=== PATIENT | male | born 1970 | race Caucasian/White ===

== ENCOUNTER 2016-12-20 10:21 | Inpatient (IN) | payer BC ==
--- NOTE | ~2016-12-20 | OP ---
Record Of Operation [facility] [address] [place]. [address] NAME: YUNIER HERNANDEZ : 72 STATUS : ADM IN PAT#: [id number] AGE: 46 ADM/REG DATE : 12/20/16 MR#: [id number] REPORT SERV DATE: 12/20/16 DICTATED BY: KAVON MARTINEZ DATE: 12/20/16 REPORT STATUS : Draft TRANSCRIBED BY: MODL DATE: 12/20/16 DATE OF PROCEDURE: 12/20/2016 PREOPERATIVE DIAGNOSES: 1. Right foot osteomyelitis. 2. Right foot ulcer at the previous amputation site. 3. Right posterior heel ulceration. 4. Morbid obesity. 5. Diabetes mellitus with neuropathy. 6. Active smoker. POSTOPERATIVE DIAGNOSES: 1. Right foot osteomyelitis. 2. Right foot ulcer at the previous amputation site. 3. Right posterior heel ulceration. 4. Morbid obesity. 5. Diabetes mellitus with neuropathy. 6. Active smoker. PROCEDURES: 1. Right first ray amputation. 2. Right foot ulcer irrigation and debridement down to bone. INDICATION FOR OPERATION: Yunier Hernandez is a pleasant 46-year-old male who underwent a prior first MTP level amputation for diabetic foot ulceration with osteomyelitis. For a while, this looked really good. Unfortunately, the wound ultimately started draining. He failed conservative treatment for this condition. Risks and benefits of the above-mentioned surgery were discussed at length with the patient, all of his questions were answered, and he wished to proceed. DESCRIPTION OF PROCEDURE: Hema was brought back to operating room where general anesthesia was initiated. Right lower extremity was prepped and draped in the usual sterile fashion. Esmarch exsanguination was utilized and a well-padded calf tourniquet was inflated. Initially, we examined the foot, he had a small area of wound dehiscence over the distal incision. This was opened up. Irrigation and debridement down to including bone of the first metatarsal head was performed. We removed all necrotic and devitalized tissue. Deep tissue cultures were sent including subcutaneous tissues as well as deep tissue and even some bone fragments. Tissues were sent to microbiology for culture. Next, we performed a first ray amputation. The incision was made, carried back to the base of the first metatarsal, this incision was carried down to bone. Sharp dissection was used to expose the first metatarsal. We used a small sagittal saw to amputate the first ray distal to the anterior tibial tendon insertion. This first ray was removed in its entirety. Each sesamoid was also removed as we felt they may have been involved in this infectious process. At this time, we examined the foot. We "freshened" skin edges with a #15 blade. This left fresh bleeding edges. We continued to perform irrigation and debridement. We used a Pulsavac irrigation and sequential debridement until all necrotic and devitalized tissue had Record Of Operation [address] [address] NAME: YUNIER HERNANDEZ : 72 STATUS : ADM IN PAT#: [id number] AGE: 46 ADM/REG DATE : 12/20/16 MR#: [id number] REPORT SERV DATE: 12/20/16 DICTATED BY: KAVON MARTINEZ DATE: 12/20/16 REPORT STATUS : Draft TRANSCRIBED BY: DANIEL DATE: 12/20/16 been removed. Once the thorough debridement with normal saline was completed, the tourniquet was deflated and local vessels were cauterized as indicated. He had excellent vascularization of the remaining toes. He had healthy bleeding viable skin edges. Where sharp incision was made, we closed this wound in a single layer with multiple interrupted 2- 0 nylon sutures. Distally, we packed the wound open with half-inch iodoform Nu Gauze. Bulky sterile dressings were applied. On the posterior heel, he has a small partial- thickness ulceration approximately 8 mm in diameter over the posterior heel. This was dressed with a sterile well-padded dressing with Xeroform over the ulcer. Bulky sterile dressings were applied. The patient did well throughout the case. He awoke in the operating room and was transferred to recovery room in satisfactory condition. ALFA/DANIEL Kavon Martinez MD / [id number] CC: Kavon Martinez MD
--- NOTE | ~2016-12-20 | DS ---
Discharge Summary [facility] [address] [place]. [address] NAME: REGGIE HERNANDEZ : 72 STATUS : DIS IN PAT#: [id number] AGE: 46 ADM/REG DATE : 12/20/16 MR#: [id number] REPORT SERV DATE: 01/05/17 DICTATED BY: JUDITH MARTINEZ DATE: 01/04/17 REPORT STATUS : Draft TRANSCRIBED BY: DANIEL DATE: 01/04/17 ADMISSION DATE: 12/20/2016 DISCHARGE DATE: 12/26/2016 REASON FOR HOSPITALIZATION: Right foot osteomyelitis with nonhealing wound. HOSPITAL COURSE: Hema Hernandez is a pleasant 46-year-old male, who underwent prior first MTP level amputation for diabetic foot ulceration with osteomyelitis. He is an active smoker. Unfortunately, the wound started draining and he failed conservative treatment. Risks and benefits of the above-mentioned surgery were discussed at length with the patient. He wished to proceed. Surgery was performed on 12/20/2016. Underwent a first ray amputation with irrigation and debridement of the ulcer down to the bone. Wound was packed and a wound VAC was ultimately placed. Deep cultures were sent. Infectious Disease doctors closely followed this patient throughout his hospital course. He is also followed by the medical doctors. He was discharged to assisted facility with appropriate plans in place. All of his questions were answered and close followup appointments were made. ALFA/DANIEL Judith Martinez MD / [id number] CC: MD Xena Humphries Amy
--- NOTE | ~2016-12-20 | CN ---
Consultation Report [address] [place]. [address] NAME: REGGIE CAMACHO : 72 STATUS : ADM IN PAT#: [id number] AGE: 46 ADM/REG DATE : 12/20/16 MR#: [id number] REPORT SERV DATE: 12/20/16 DICTATED BY: PATRICIA GAY DATE: 12/20/16 REPORT STATUS : Draft TRANSCRIBED BY: MODL DATE: 12/20/16 CONSULTATION DATE OF CONSULTATION: 12/20/2016 REASON FOR CONSULTATION: Preop clearance and also for med management. HISTORY OF PRESENT ILLNESS: Reason for the patient being admitted is for right foot osteomyelitis, for probable incision and drainage/debridement/further extensive surgery and possible even forefoot amputation, but this is per Orthopedic Surgery. The patient was examined at bedside and according to the chart and after talking to the patient, the patient has several comorbidities all related to his BMI and being overweight essentially. At this time, the patient denies any headaches, blurry vision, shortness of breath, wheeze, cough, chest pain, fever, abdominal pain, nausea, vomiting, dysuria, hematuria, blood in stool, joint pains, etc. He states that his right foot has been hurting and never has healed completely since his right big toe amputation a few months ago. PAST MEDICAL HISTORY: Significant for: 1. High blood pressure. 2. Diabetes mellitus, insulin requiring. 3. Hyperlipidemia or dyslipidemia. 4. Obstructive sleep apnea, the patient does not have CPAP right now, but states is in the process of getting one. Other comorbidities also include hypothyroidism and tobacco abuse. The patient also has a history of asthma/COPD from his tobacco use according to him. REVIEW OF SYSTEMS: As above. FAMILY HISTORY: Positive for diabetes mellitus in father. SOCIAL HISTORY: The patient smokes a pack a day even now. The patient states that as of yesterday, he has given up smoking and given up his one pack of cigarettes that he used to smoke every day. The patient denies any significant alcohol use. Denies any illicits. The patient is and has one 18-year-old daughter and works. ALLERGIES: THE PATIENT IS ALLERGIC TO ASPARTAME. Consultation Report [address] [address] NAME: REGGIE CAMACHO : 72 STATUS : ADM IN PAT#: [id number] AGE: 46 ADM/REG DATE : 12/20/16 MR#: [id number] REPORT SERV DATE: 12/20/16 DICTATED BY: PATRICIA GAY DATE: 12/20/16 REPORT STATUS : Draft TRANSCRIBED BY: DANIEL DATE: 12/20/16 CURRENT MEDICATIONS: Include aspirin 81 mg once a day, Bydureon subcutaneous pen injector once a day, furosemide 20 mg tablet once a day, Januvia once a day, lisinopril 20 mg once a day, metformin ER 500 mg once a day, Singulair 10 mg once a day, potassium 20 mEq once a day, ranitidine 150 mg once a day, Synthroid 175 mcg once a day, and Toujeo SoloStar 300 units/mL subcutaneous insulin pen that he uses once a day also. PHYSICAL EXAMINATION: GENERAL: The patient is alert, awake, oriented and does not seem to be in any distress at this time. The patient is an obese gentleman with a BMI of definitely over 40. His skin and mucous membranes appear moist. VITAL SIGNS: Appear stable right now. NECK: There is no JVD, thyromegaly, or lymphadenopathy. There is no facial asymmetry or facial droop. CARDIOVASCULAR SYSTEM: S1 and S2 appreciated. Sinus rhythm. No murmurs, rubs, or gallops noted at this time. RESPIRATORY SYSTEM: Thick chest wall noted. Clear lungs noted. Diminished breath sounds noted at the bases. ABDOMEN: Obese. There is no hepatosplenomegaly, no organomegaly, no tenderness, no guarding. Bowel sounds are appreciated. EXTREMITIES: There is no pedal edema. Pedal pulses are well felt, even though slightly diminished in the right lower extremity. The patient recently had an arterial Doppler that did not show any major blockages in any of the major blood vessels to the lower extremities. NEUROLOGICAL: Normal. MUSCULOSKELETAL: No acute swelling or redness in any of the major joints. PSYCHIATRIC: Normal affect. LABORATORY DATA: I do not have any labs at this time. EKG, no EKG at this time. No other tests available at this time. ASSESSMENT: We are asked for preop clearance on a patient who is 46 years old with multiple comorbidities including diabetes mellitus and tobacco abuse, being brought in for right foot surgery, I and D, possibly amputation if needed. The patient understands this. We will get an EKG stat, a CBC and BMP stat. We will put the patient on sliding scale insulin level 3. Accu-Cheks a.c. and h.s., but hold all his home medications that he takes for diabetes at this time. We will go ahead and put him on nicotine patch 21 mg once a day. Except the following medications, I would like to hold all his other home medications. We will continue Lasix 20 mg once a day, levothyroxine 175 mcg once a day, K-Dur 20 mEq once a day. We will put him on Protonix 40 mg once a day and breathing treatments with DuoNeb q.4 hours p.r.n. I am requesting the orthopedic surgeon to please send off wound culture and sensitivity during surgery, so we can decide on antibiotics based on what the wound culture and sensitivity show at this time. At this time, when I examined him, his right foot is wrapped in bandage and he said that the dressing was just changed two hours ago. The dressing appears clean. There is no soakage or seepage in the dressing that is seen. The Consultation Report [address] [address] NAME: REGGIE CAMACHO : 72 STATUS : ADM IN PAT#: [id number] AGE: 46 ADM/REG DATE : 12/20/16 MR#: [id number] REPORT SERV DATE: 12/20/16 DICTATED BY: PATRICIA GAY DATE: 12/20/16 REPORT STATUS : Draft TRANSCRIBED BY: MODL DATE: 12/20/16 patient has had his right big toe amputated. We will follow the patient along with you, thanks for the consultation, and I will go ahead and check on his labs and EKG before surgery is planned as of today. RRA/DANIEL Patricia Gay M.D. / [id number] CC: MD Xena Humphries Amy
--- NOTE | ~2016-12-20 | HP ---
History And Physical [facility] [id number] [place]. [address] NAME: YUNIER HERNANDEZ : 72 STATUS : DIS IN PAT#: [id number] AGE: 46 ADM/REG DATE : 12/20/16 MR#: [id number] REPORT SERV DATE: 01/21/17 DICTATED BY: KAVON MARTINEZ DATE: 01/21/17 REPORT STATUS : Draft TRANSCRIBED BY: MODL DATE: 01/21/17 DATE OF ADMISSION: 12/20/2016 12/20/2016 was the date of the surgery. CHIEF COMPLAINT: Right foot draining wound. HISTORY OF PRESENT ILLNESS: Yunier Hernandez is a pleasant 46-year-old male who underwent a prior first MTP joint level amputation for diabetic foot ulceration with osteomyelitis. Unfortunately, this failed to heal completely. We discussed revision surgery including a more proximal level amputation without primary wound closure. Risks and benefits of this surgery were discussed, and he wished to proceed. PAST MEDICAL HISTORY: Right foot osteomyelitis, right foot ulceration, right posterior heel ulceration, morbid obesity, diabetes mellitus with neuropathy, an active smoker, obstructive sleep apnea, asthma, COPD, and hypothyroidism. REVIEW OF SYSTEMS: The patient was in his usual state of health at the time of the procedure. He denied fevers, chills, nausea, vomiting, abdominal pain, shortness of breath, or chest pain. Did note a draining wound on the right foot. PRIOR SURGERIES: See above. FAMILY HISTORY: Positive for diabetes mellitus in his father. SOCIAL HISTORY: The patient smokes pack a day. Denies any significant alcohol use. Denies illicit drug use. 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 He is and has one 18-year-old daughter. ALLERGIES: TO ASPARTAME. MEDICATIONS: Aspirin daily, Bydureon subcutaneous pen injector once a day, Lasix, Januvia, lisinopril, metformin, Singulair, potassium, ranitidine, Synthroid, Toujeo SoloStar. PHYSICAL EXAMINATION: GENERAL: Examination reveals that he is awake and alert x3. He is alert and oriented. He is an obese gentleman. Morbidly obese. HEENT: Head is atraumatic. Pupils are equal to light and reactive. EXTREMITIES: Full active and passive range of motion of his upper extremities. Full active and passive range of motion of his lower extremities. No significant left foot wounds. Small right posterior heel ulceration. Draining wound, right foot. ASSESSMENT: Right foot osteomyelitis confirmed by x-rays and MRI scan. PLAN: Lengthy discussion with the patient regarding his diagnosis and treatment options. History And Physical [address] [place]. [address] NAME: YUNIER HERNANDEZ : 72 STATUS : DIS IN PAT#: [id number] AGE: 46 ADM/REG DATE : 12/20/16 MR#: [id number] REPORT SERV DATE: 01/21/17 DICTATED BY: KAVON MARTINEZ DATE: 01/21/17 REPORT STATUS : Draft TRANSCRIBED BY: MODL DATE: 01/21/[address] Felipa Ochoa's consultation dated 12/20/2016 for additional medical details and clearance records. We recommended revision surgery. All these options were thoroughly discussed with the patient. We also discussed the importance of nonweightbearing as well as quitting smoking and taking care of his foot during this surgery. He agreed to the above recommendations and wished to proceed with surgical intervention. ALFA/DANIEL Kavon Martinez MD / [id number] CC: MD KYLE Humphries AMY
[~2016-12-20 10:21] MED LIST: ACET500CAP PO; BEN25 PO; BYDUREON2 MG SQ; COSAMIN DS1 TAB PO; FORTAMET1000 MG PO; HALF81 PO; KDUR20 PO; L20 PO; LEVOTHYROXIN175 MCG PO; MAXIMUM D3 PO; MONISTAT 34 % TOP; MULTIVIT/MIN PO; NIACIN 500 PO; PRIN20 PO; SINGULAIR1 PO; TOUJEO SC; VENTOLIN HFA INH; ZANTAC 150 PO
[2016-12-20 11:50] LABS: BASOPHILS 0.5 %; BASOPHILS ABSOLUTE 0.03 10/3/uL (0.0-0.16); EOSINOPHILS ABSOLUTE 0.17 10/3/uL (0.0-0.53); IMMATURE GRANULOCYTES 0.2 %; IMMATURE GRANULOCYTES ABSOLUTE 0.01 10/3/uL (0.0-0.11); LYMPHOCYTES 19.4 %; LYMPHOCYTES ABSOLUTE 1.12 10/3/uL (0.67-4.30); MEAN CORPUS HGB CONC 32.5 g/dL (32.0-36.0); MEAN CORPUSCULAR HEMOGLOB 28.1 pg (26.0-34.0); MEAN CORPUSCULAR VOLUME 86.6 fL (80-100); MONOCYTES 9.9 %; MONOCYTES ABSOLUTE 0.57 10/3/uL (0.21-1.20); NEUTROPHILS ABSOLUTE 3.86 10/3/uL (2.02-8.40); RBC DISTRIBUTION WIDTH 13.7 % (12.0-16.0); WHITE BLOOD CELLS 5.8 10/3/uL (4.5-10.5)
[2016-12-20 11:52] LABS: HEMATOCRIT 27.1 % (40.0-51.0); HEMOGLOBIN 8.8 g/dL (13.6-17.8); MANUAL DIFF NO %; PLATELET COUNT 99 10/3/uL (150-400); RED CELL COUNT 3.13 10/6/uL (4.7-6.1)
[2016-12-20 11:57] LABS: INTERNATIONAL NORMAL RATI 1.2 UNITS (-); PARTIAL THROMBO TIME 28.1 SEC (22.5-37.2); PROTIME (NOT ORD) 14.6 SEC (12.0-14.5)
[2016-12-20 12:28] LABS: A/G RATIO 0.9 (0.7-1.9); ALBUMIN 3.2 G/DL (3.5-5.0); ALKALINE PHOSPHATASE 141 U/L (45-117); C-REACTIVE PROTEIN 60.9 MG/L (<8.0); CHLORIDE, SERUM 103 MMOL/L (96-112); CO2 (CARBON DIOXIDE) 27 MMOL/L (24-34); CREATININE 0.86 MG/DL (0.70-1.30); GFR AFRICAN AMERICAN 121 ML/MIN (>=60); GFR NON AFRICAN AMERICAN 105 ML/MIN (>=60); GLOBULIN 3.7 G/DL (2.5-4.1); GLUCOSE, SERUM 256 MG/DL (60-99); POTASSIUM, SERUM 4.3 MMOL/L (3.5-5.3); SGOT(AST) 25 U/L (5-40); SGPT(ALT) 48 U/L (5-65); SODIUM, SERUM 139 MMOL/L (135-148); TOTAL BILIRUBIN 0.4 MG/DL (0-1.2); TOTAL PROTEIN 6.9 G/DL (6.0-8.5)
[2016-12-20 12:29] LABS: BUN (BLOOD UREA NITROGEN) 20 MG/DL (6-23); CALCIUM, SERUM 9.7 MG/DL (8.5-10.4)
[2016-12-20 12:45] LABS: SED RATE 8 MM/HR (0-15)
[2016-12-21] MEDS ORDERED: JANUVIA100 MG PO (11:50)
[2016-12-22 06:36] LABS: BASOPHILS 0.4 %; BASOPHILS ABSOLUTE 0.03 10/3/uL (0.0-0.16); EOSINOPHILS 3.6 %; EOSINOPHILS ABSOLUTE 0.27 10/3/uL (0.0-0.53); IMMATURE GRANULOCYTES 0.5 %; IMMATURE GRANULOCYTES ABSOLUTE 0.04 10/3/uL (0.0-0.11); LYMPHOCYTES ABSOLUTE 2.39 10/3/uL (0.67-4.30); MEAN CORPUS HGB CONC 32.8 g/dL (32.0-36.0); MEAN CORPUSCULAR HEMOGLOB 28.5 pg (26.0-34.0); MEAN PLATELET VOLUME 12.3 fL (9.2-13.0); MONOCYTES 7.6 %; MONOCYTES ABSOLUTE 0.57 10/3/uL (0.21-1.20); NEUTROPHILS 55.9 %; NEUTROPHILS ABSOLUTE 4.18 10/3/uL (2.02-8.40); RBC DISTRIBUTION WIDTH 13.7 % (12.0-16.0); WHITE BLOOD CELLS 7.5 10/3/uL (4.5-10.5)
[2016-12-22 06:42] LABS: BUN (BLOOD UREA NITROGEN) 15 MG/DL (6-23); CALCIUM, SERUM 8.1 MG/DL (8.5-10.4); CHLORIDE, SERUM 103 MMOL/L (96-112); CO2 (CARBON DIOXIDE) 24 MMOL/L (24-34); CREATININE 0.65 MG/DL (0.70-1.30); GFR AFRICAN AMERICAN 136 ML/MIN (>=60); GFR NON AFRICAN AMERICAN 117 ML/MIN (>=60); GLUCOSE, SERUM 227 MG/DL (60-99); HEMATOCRIT 40.9 % (40.0-51.0); HEMOGLOBIN 13.4 g/dL (13.6-17.8); MANUAL DIFF NO %; PLATELET COUNT 183 10/3/uL (150-400); POTASSIUM, SERUM 4.2 MMOL/L (3.5-5.3); SODIUM, SERUM 137 MMOL/L (135-148)
[2016-12-22 11:03] LABS: PROCALCITONIN 0.08 ng/mL (<0.5)
[2016-12-23 06:38] LABS: BASOPHILS 0.6 %; BASOPHILS ABSOLUTE 0.04 10/3/uL (0.0-0.16); EOSINOPHILS 4.1 %; EOSINOPHILS ABSOLUTE 0.29 10/3/uL (0.0-0.53); HEMATOCRIT 40.1 % (40.0-51.0); HEMOGLOBIN 12.8 g/dL (13.6-17.8); IMMATURE GRANULOCYTES 0.1 %; IMMATURE GRANULOCYTES ABSOLUTE 0.01 10/3/uL (0.0-0.11); LYMPHOCYTES 34.7 %; LYMPHOCYTES ABSOLUTE 2.43 10/3/uL (0.67-4.30); MEAN CORPUS HGB CONC 31.9 g/dL (32.0-36.0); MEAN CORPUSCULAR HEMOGLOB 28.1 pg (26.0-34.0); MEAN CORPUSCULAR VOLUME 87.9 fL (80-100); MEAN PLATELET VOLUME 11.9 fL (9.2-13.0); MONOCYTES 8.4 %; MONOCYTES ABSOLUTE 0.59 10/3/uL (0.21-1.20); NEUTROPHILS 52.1 %; NEUTROPHILS ABSOLUTE 3.65 10/3/uL (2.02-8.40); PLATELET COUNT 174 10/3/uL (150-400); RBC DISTRIBUTION WIDTH 13.6 % (12.0-16.0); RED CELL COUNT 4.56 10/6/uL (4.7-6.1)
[2016-12-23 06:40] LABS: MANUAL DIFF NO %
[2016-12-23 06:47] LABS: BUN (BLOOD UREA NITROGEN) 12 MG/DL (6-23); CALCIUM, SERUM 8.1 MG/DL (8.5-10.4); CHLORIDE, SERUM 101 MMOL/L (96-112); CO2 (CARBON DIOXIDE) 29 MMOL/L (24-34); CREATININE 0.64 MG/DL (0.70-1.30); GFR AFRICAN AMERICAN 137 ML/MIN (>=60); GFR NON AFRICAN AMERICAN 118 ML/MIN (>=60); GLUCOSE, SERUM 179 MG/DL (60-99); POTASSIUM, SERUM 4.5 MMOL/L (3.5-5.3); SODIUM, SERUM 139 MMOL/L (135-148)
[2016-12-26 04:13] LABS: BASOPHILS 0.5 %; BASOPHILS ABSOLUTE 0.03 10/3/uL (0.0-0.16); EOSINOPHILS 3.9 %; EOSINOPHILS ABSOLUTE 0.25 10/3/uL (0.0-0.53); HEMATOCRIT 41.2 % (40.0-51.0); HEMOGLOBIN 13.3 g/dL (13.6-17.8); IMMATURE GRANULOCYTES 0.3 %; IMMATURE GRANULOCYTES ABSOLUTE 0.02 10/3/uL (0.0-0.11); LYMPHOCYTES 34.1 %; LYMPHOCYTES ABSOLUTE 2.18 10/3/uL (0.67-4.30); MANUAL DIFF NO %; MEAN CORPUS HGB CONC 32.3 g/dL (32.0-36.0); MEAN CORPUSCULAR HEMOGLOB 27.9 pg (26.0-34.0); MEAN CORPUSCULAR VOLUME 86.6 fL (80-100); MEAN PLATELET VOLUME 11.5 fL (9.2-13.0); MONOCYTES 8.9 %; MONOCYTES ABSOLUTE 0.57 10/3/uL (0.21-1.20); NEUTROPHILS 52.3 %; NEUTROPHILS ABSOLUTE 3.34 10/3/uL (2.02-8.40); PLATELET COUNT 178 10/3/uL (150-400); RBC DISTRIBUTION WIDTH 13.5 % (12.0-16.0); RED CELL COUNT 4.76 10/6/uL (4.7-6.1); WHITE BLOOD CELLS 6.4 10/3/uL (4.5-10.5)
[2016-12-26 04:35] LABS: A/G RATIO 0.8 (0.7-1.9); BUN (BLOOD UREA NITROGEN) 12 MG/DL (6-23); CALCIUM, SERUM 8.2 MG/DL (8.5-10.4); CHLORIDE, SERUM 104 MMOL/L (96-112); CO2 (CARBON DIOXIDE) 28 MMOL/L (24-34); CREATININE 0.68 MG/DL (0.70-1.30); GFR AFRICAN AMERICAN 134 ML/MIN (>=60); GFR NON AFRICAN AMERICAN 115 ML/MIN (>=60); GLOBULIN 3.9 G/DL (2.5-4.1); GLUCOSE, SERUM 145 MG/DL (60-99); POTASSIUM, SERUM 4.3 MMOL/L (3.5-5.3); SGOT(AST) 44 U/L (5-40); SGPT(ALT) 58 U/L (5-65); SODIUM, SERUM 140 MMOL/L (135-148); TOTAL BILIRUBIN 0.3 MG/DL (0-1.2); TOTAL PROTEIN 6.9 G/DL (6.0-8.5)
[2016-12-26 04:49] LABS: ALKALINE PHOSPHATASE 99 U/L (45-117); PHOSPHORUS, SERUM 3.3 MG/DL (2.5-4.5)
== END 2016-12-26 17:43 | DRG 617 ==
LOC: CDU1 10:21 → SDC/OF 15:31 → PACU 18:28 → 2SO 20:56
PROVIDERS: Hospitalist; Internal Medicine Infectious Disease; Orthopaedic Surgery Foot and Ankle Surgery
PROC: 0Y6M0Z9 Detachment at Right Foot, Partial 1st Ray, Open Approach (ICD-10-PCS; principal; 2016-12-20 16:45)
PROC: 0QBN0ZZ Excision of Right Metatarsal, Open Approach (ICD-10-PCS; 2016-12-20 16:45)
DX: E11.69 Type 2 diabetes mellitus with other specified complication (principal); M86.8X7 Other osteomyelitis, ankle and foot; D62 Acute posthemorrhagic anemia; E11.65 Type 2 diabetes mellitus with hyperglycemia; I80.8 Phlebitis and thrombophlebitis of other sites; I10 Essential (primary) hypertension; Z68.41 Body mass index [BMI] 40.0-44.9, adult; L03.115 Cellulitis of right lower limb; T80.1XXA Vascular complications following infusion, transfusion and therapeutic injection, initial encounter; E11.42 Type 2 diabetes mellitus with diabetic polyneuropathy; E11.621 Type 2 diabetes mellitus with foot ulcer; E78.5 Hyperlipidemia, unspecified; G47.33 Obstructive sleep apnea (adult) (pediatric); E03.9 Hypothyroidism, unspecified; F17.210 Nicotine dependence, cigarettes, uncomplicated; J44.9 Chronic obstructive pulmonary disease, unspecified; J45.909 Unspecified asthma, uncomplicated; E66.01 Morbid (severe) obesity due to excess calories; K21.9 Gastro-esophageal reflux disease without esophagitis; R09.02 Hypoxemia; R00.0 Tachycardia, unspecified; Z83.3 Family history of diabetes mellitus; Z79.4 Long term (current) use of insulin; Y82.8 Other medical devices associated with adverse incidents; Y92.230 Patient room in hospital as the place of occurrence of the external cause
CPT/HCPCS: 36569-52; 71010; 73718-RT; 80048; 80053; 80202; 82962; 83735; 84100; 84145; 85025; 85610; 85652; 85730; 86140; 87015; 87070; 87075; 87102; 87116; 87205; 88305; 88311; 93005; 97116-GP; 97162-GP; 97166-GO; 97530-GP; 97535-GO; A9270-GY; C1894; J2250; J2270; J2370; J2405; J3010; J3370

== ENCOUNTER 2017-02-15 16:21 | Inpatient (IN) | payer BC, OTHER ==
--- NOTE | ~2017-02-15 | DS ---
Discharge Summary [facility] [address] [place]. [address] NAME: REGGIE HERNANDEZ : 72 STATUS : DIS IN PAT#: [id number] AGE: 46 ADM/REG DATE : 02/15/17 MR#: [id number] REPORT SERV DATE: 02/22/17 DICTATED BY: SAMMY [place] DATE: 02/20/17 REPORT STATUS : Draft TRANSCRIBED BY: MODL DATE: 02/20/17 ADMISSION DATE: 02/15/2017 DISCHARGE DATE: 02/20/2017 REASON FOR ADMISSION: Left great toe wound and fever. HPI: Please refer Dr. Hung Farah's history and physical dated 02/15/2017 for complete details regarding the patient's admission. In brief, the patient was admitted to the Hospitalist Service for management and evaluation of his left great toe and diabetic foot ulcer. HOSPITAL COURSE: The patient had an uncomplicated hospital course. The patient had several imaging studies done including an MRI of his lower extremity on 02/19/2017 which showed evidence for osteomyelitis involving the mid to distal portion of the first metatarsal bone, new from 10/11/2016. The patient has undergone amputation of the phalangeal bone to the first digit in the interval. An x-ray that was done prior to the MRI showed an ulcer and soft tissue swelling of the left great toe, but no evidence of osteo. Dr. Gil with [facility] performed an irrigation debridement and excisional debridement down to and including the tendon of the left great toe on 02/16/2017. Dr. Peter Melissa with Infectious Disease was consulted and placed the patient on appropriate antibiotics. Cultures were obtained. The patient had a wound VAC placed. He will be getting a PICC line placed for IV ceftaroline and then to start oral Zyvox on 03/11/2017. The patient was noted to have an allergic reaction to possibly aspartame on the day of discharge. He will get a dose of Solu-Medrol and Benadryl prior to being discharged. Once all the arrangements with IV antibiotics, wound vacuum and PICC line have been arranged, patient discharged home in stable condition. DISCHARGE DIAGNOSES: 1. Left plantar osteomyelitis. 2. Type 2 diabetes. 3. Morbid obesity. 4. Hypothyroidism. 5. Hypertension. 6. Possible aspartame allergic reaction. PROCEDURES: Include MRI, x-ray consultation with Dr. Gil, consultation with Dr. Peter Melissa, chest x-ray, PICC line placement, incision and debridement of left ulcer. DISCHARGE MEDICATIONS: Include Januvia 100 mg daily, vitamin D 50,000 units daily, Zantac 150 mg twice a day, Lasix 20 mg daily, Toujeo 30 units at bedtime, Synthroid 150 mcg daily, lisinopril 20 mg twice a day, Singulair 10 mg at bedtime, multivitamin daily, Niacor 1000 mg daily, Klor-Con 20 mEq daily, ibuprofen p.r.n., Glucophage 1000 mg twice a day, Bydureon 2 mg every Saturday, glucosamine twice a day, Robaxin p.r.n., aspirin 81 mg daily, ceftaroline 600 mg IV every eight hours through 03/10/2017, then Zyvox 600 mg twice a day starting on 03/11/2017. Discharge Summary [address] [address] NAME: REGGIE HERNANDEZ : 72 STATUS : DIS IN PAT#: [id number] AGE: 46 ADM/REG DATE : 02/15/17 MR#: [id number] REPORT SERV DATE: 02/22/17 DICTATED BY: SAMMY [place] DATE: 02/20/17 REPORT STATUS : Draft TRANSCRIBED BY: DANIEL DATE: 02/20/17 Spending over 30 minutes in discharge planning and coordination of care on Mr. Hernandez. ADDENDUM: The patient was initially scheduled to be discharged to home with home health with wound VAC and IV antibiotics on 02/20/2017, however, we were unable to find a home health agency and a PICC line was not able to be placed in time. We have placed a PICC line and the patient will be discharged today in stable condition to [facility] for rehab and IV antibiotics along with wound care. Please refer my previous discharge dictation for complete details regarding the patient's hospitalization, discharge diagnoses, and medications. There were no changes. This is Dr. Sammy Austin spending over 30 minutes in discharge planning and coordination of care on Mr. Hernandez. LESLIE/DANIEL Sammy Austin MD / [id number] / [id number] CC: MD Peter Hays M.D. Matthew M. Buchanan, MD
--- NOTE | ~2017-02-15 | CN ---
Consultation Report [facility] [address] [place]. [address] NAME: YUNIER HERNANDEZ : 72 STATUS : ADM IN PAT#: [id number] AGE: 46 ADM/REG DATE : 02/15/17 MR#: [id number] REPORT SERV DATE: 02/18/17 DICTATED BY: KAVON MARTINEZ DATE: 02/16/17 REPORT STATUS : Draft TRANSCRIBED BY: MODL DATE: 02/16/17 CONSULTATION REPORT DATE OF CONSULTATION: 02/16/2017 REASON FOR CONSULTATION: Left plantar forefoot ulceration. HISTORY OF PRESENT ILLNESS: Yunier Hernandez is a pleasant 46-year-old male, who is well known to my service. He recently underwent two surgical interventions for treatment of a right hallux osteomyelitis with ulceration, this culminated in a right first ray amputation. He was nearly completely healed from this most recent procedure after a lengthy use of a wound VAC. He had healed reasonably well, and we were actually quite pleased with his progress. Fortunately, he developed onset of a left hallux ulceration. He was recently seen by his primary care office with malodorous smell and a wound drainage from his left great toe that started "a few days" ago. He noticed significant increase in erythema and swelling. He noticed a fever of 101.3 at home. He had overall chills and was not feeling well. He was instructed to head to the emergency department where further evaluation was performed. The patient was subsequently admitted and I was asked to evaluate the patient. PAST MEDICAL HISTORY: Significant for morbid obesity; diabetes mellitus type 2, insulin dependent and poorly controlled. Smoking, he continues to smoke despite the strong advice to quit which I provided a significant amount of strong advice. Hypothyroidism, hypertension, obstructive sleep apnea, noncompliant with CPAP, asthma/COPD. PAST SURGICAL HISTORY: See above. Tonsillectomy. ALLERGIES: ASPARTAME AND COCONUT. HOME MEDICATIONS: Multivitamin, ibuprofen, Pepcid, Lasix, Januvia, lisinopril, metformin, vitamin D, niacin, Singulair, potassium, Xanax, Synthroid, Toujeo, Bydureon, glucosamine chondroitin, aspirin daily. SOCIAL HISTORY: , lives with his . He smokes about a pack of cigarettes a day. Denies alcohol abuse. Denies illicit or recreational drug use. 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 REVIEW OF SYSTEMS: The patient is in his usual state of health at the time of the evaluation. He is currently denying fevers, chills, nausea, vomiting, abdominal pain, shortness of breath, or chest pain. PHYSICAL EXAMINATION: VITAL SIGNS: Reveals a morbidly obese male, in no acute distress. He is sitting in his bed, working on a computer. He is alert and oriented x3. VITAL SIGNS: His temperature is 98.4, heart rate 79, respirations 16. He has 96% O2 Consultation Report [facility] [address] [place]. [address] NAME: YUNIER HERNANDEZ : 72 STATUS : ADM IN [facility]#: [id number] AGE: 46 ADM/REG DATE : 02/15/17 MR#: [id number] REPORT SERV DATE: 02/18/17 DICTATED BY: KAVON MARTINEZ DATE: 02/16/17 REPORT STATUS : Draft TRANSCRIBED BY: MODL DATE: 02/16/17 saturation on room air. HEENT: His head is atraumatic. Eyes, pupils equal to light and reactive. NECK: No cervical spine tenderness with gentle range of motion. CHEST: Nonlabored breathing. HEART: Regular rate and rhythm. ABDOMEN: Morbidly obese. EXTREMITIES: Bilateral upper extremities, no tenderness with gentle range of motion. Right lower extremity, he has a healing wound, status post right first ray amputation. The great toe has been amputated. The wound has had extensive use of a wound VAC and is nearly completely closed. There is minimal edema. No wound drainage. No purulence or loculations. Examination of the left foot reveals a full-thickness ulceration on the plantar surface of the left great toe. Dense callus is present around this wound. It is malodorous. It probes to deep tissue. It is 1.5 cm in diameter and full thickness. No additional skin lesions are noted on his left foot. Dorsalis pedis and posterior tibial pulses are palpable. Cap refill is less than 2 seconds. There is erythema and edema surrounding the left great toe. No significant lymphatic streaking, although he does have evidence of chronic venous insufficiency bilateral with hyperpigmentation of the Gaiter region. X-RAYS: X-rays of the left foot taken on 02/15/2013, are negative for osteomyelitis. He does have small sesamoid bone underneath his left great toe IP joint. MRI is pending. White count 9.3. Hemoglobin 13.9 CRP 44.8, glycosylated hemoglobin is 8.7. IMPRESSION: 1. Left plantar forefoot ulceration that probes to the FHL tendon. 2. Poorly controlled diabetes mellitus with neuropathy. 3. Active smoker. 4. Morbidly obese. PLAN: Lengthy discussion with Yunier regarding his diagnosis and treatment options. This is deep ulceration that probes to his FHL tendon. I recommended irrigation and debridement at the bedside to clean up this wound. He agreed. Please reference my surgical procedure note dictated today regarding this procedure. Upon conclusion of the debridement, a bulky sterile dressing was applied. We have asked Yunier to be heel weightbearing in a postop shoe with the use of a walker. I have asked Physical Therapy to help with this. I have also asked for the wound care nurses to come by and help with the care of this ulceration. MRI is pending and we will follow these results. I appreciate the opportunity to participate in the care of this patient. Please do not hesitate to call me on my cell phone at [phone] with additional questions or concerns. Consultation Report [address] [place]. [address] NAME: YUNIER HERNANDEZ : 72 STATUS : ADM IN [facility]#: [id number] AGE: 46 ADM/REG DATE : 02/15/17 MR#: [id number] REPORT SERV DATE: 02/18/17 DICTATED BY: KAVON MARTINEZ DATE: 02/16/17 REPORT STATUS : Draft TRANSCRIBED BY: DANIEL DATE: 02/16/17 ADDENDUM A minimum of 55 minutes were spent on this consultation including review of the medical records as well as [id number] consultation with the patient. ALFA/DANIEL Kavon Martinez MD / [id number] / [id number] CC: Sam Mar MD
--- NOTE | ~2017-02-15 | OP ---
Record Of Operation [facility] [address] [place]. [address] NAME: REGGIE HERNANDEZ : 72 STATUS : ADM IN PAT#: [id number] AGE: 46 ADM/REG DATE : 02/15/17 MR#: [id number] REPORT SERV DATE: 02/16/17 DICTATED BY: JUDITH MARTINEZ DATE: 02/16/17 REPORT STATUS : Draft TRANSCRIBED BY: DANIEL DATE: 02/16/17 DATE OF PROCEDURE: 02/16/2017 PREOPERATIVE DIAGNOSIS: Left plantar hallux ulceration. POSTOPERATIVE DIAGNOSIS: Left plantar hallux ulceration. PROCEDURE: Irrigation, debridement, and excisional debridement down to including tendon, left great toe. ANESTHESIA: None. COMPLICATIONS: None. INDICATION FOR OPERATION: Reggie Hernandez is a pleasant 46-year-old male, who is well known to my service. He is status post two surgeries on the right foot, culminating in a right first ray amputation, secondary to hallux osteomyelitis. This is almost completely healed and he has done well with this surgery. On the left foot, he developed a recent onset of a left great toe ulceration. Risks and benefits of surgical intervention were discussed at length with the patient. All of his questions were answered. He wished to proceed. DESCRIPTION OF PROCEDURE: The patient was seen at the bedside, where his left foot was prepped and draped in usual sterile fashion. Tourniquet was not utilized. The patient was neuropathic and anesthesia was not needed. I performed an irrigation and debridement down to including tendon on the left great toe. Underneath the IP joint, he had an approximately 1.5 cm diameter ulceration that was full thickness that tracked down to a necrotic FHL tendon. There was a dense callus surrounding this ulceration. I did debridement and included removal of all necrotic and devitalized tissue. This included the necrotic FHL tendon. Tendon was sent to microbiology sterile specimen cup for an aerobic and anaerobic cultures. Sequential debridement was performed until all necrotic and devitalized tissue had been removed. The infection did not appear to involve the bone or the underlying periosteum. At conclusion of the procedure, the wound was packed and a bulky sterile dressing was applied. The patient did well throughout the case. He did not experience any discomfort. Appropriate wound care strategies and offloading strategies were discussed with the patient, as well as nutritional counseling during this procedure. ALFA/DANIEL Judith Martinez MD / [id number] Record Of Operation [facility] [address] [place]. [address] NAME: REGGIE HERNANDEZ DOTTY : 72 STATUS : ADM IN PAT#: [id number] AGE: 46 ADM/REG DATE : 02/15/17 MR#: [id number] REPORT SERV DATE: 02/16/17 DICTATED BY: JUDITH MARTINEZ DATE: 02/16/17 REPORT STATUS : Draft TRANSCRIBED BY: DANIEL DATE: 02/16/17 CC: Dotty Rodriguez MD
--- NOTE | ~2017-02-15 | OP ---
Record Of Operation [facility] [address] [place]. [address] NAME: YUNIER HERNANDEZ : 72 STATUS : ADM IN [facility]#: [id number] AGE: 46 ADM/REG DATE : 02/15/17 MR#: [id number] REPORT SERV DATE: 02/20/17 DICTATED BY: KAVON MARTINEZ DATE: 02/20/17 REPORT STATUS : Draft TRANSCRIBED BY: MODL DATE: 02/20/17 DATE OF PROCEDURE: 02/19/2017 PREOPERATIVE DIAGNOSIS: Left hallux ulceration. POSTOPERATIVE DIAGNOSIS: Left hallux ulceration. PROCEDURE: Irrigation and excisional debridement of left hallux ulceration (54315). ANESTHESIA: None. COMPLICATIONS: None. INDICATION FOR OPERATION: Yunier Hernandez is a pleasant 46-year-old male who developed a left hallux ulceration. This probes to and involves the flexor hallucis longus tendon. Risks and benefits of the above-mentioned procedure were discussed with the patient. All of his questions were answered. He wished to proceed. DESCRIPTION OF PROCEDURE: Mr. Hernandez's left foot was prepped and draped in usual sterile fashion. Tourniquet was not utilized. Surgical instruments were used for this procedure including sterile pickups, small scissors, and a #15 blade scalpel. I performed an excisional debridement of the left hallux ulceration. This included the skin, subcutaneous tissues, as well as the deep tissues including the FHL tendon. All necrotic and devitalized tissue was removed. Sequential debridement was performed until the wound bed was healthy appearing and clean. There is no direct bone involvement. At conclusion of the case, the wound was packed open. Bulky sterile dressings were applied. The patient tolerated the procedure without any difficulty due to his neuropathy. All of his questions were answered and care of the foot was discussed as well as nutritional and anti-smoking counseling. MMB/DANIEL Kavon Martinez MD / [id number] CC: Ney Austin MD
--- NOTE | ~2017-02-15 | HP ---
History And Physical [facility] [address] [place]. [address] NAME: REGGIE CAMACHO : 72 STATUS : ADM IN [facility]#: [id number] AGE: 46 ADM/REG DATE : 02/15/17 MR#: [id number] REPORT SERV DATE: 02/15/17 DICTATED BY: HUNG FARAH DATE: 02/15/17 REPORT STATUS : Draft TRANSCRIBED BY: MODL DATE: 02/15/17 DATE OF ADMISSION: 02/15/2017 CHIEF COMPLAINT: Left great toe wound, fever. HISTORY OF PRESENT ILLNESS: Obtained from the patient as well as from emergency room documents. Also, prior medical records available to us were thoroughly reviewed. According to the information available, the patient is a pleasant 46-year-old white man, known to our Hospitalist Service from previous admission with known history of diabetes type 2, insulin dependent, poorly controlled, morbid obesity with a previous frequent toes ulcerations and diabetic foot ulcers that most recently in December 2016 had the right foot great toe amputation and subsequently wound surgery. The patient stated that his right foot wound after the amputation of the last surgical intervention has done relatively well and had continued to heal, but he had noticed for "a few days" that the left toe was started having the wound at the plantar aspect with significant redness and swelling of the left great toe with further redness and erythema on the leg. The patient reported a fever of 101.3 at home with overall chills and not feeling well with increasing pain and drainage and foul smelling on the left toe ulceration. The patient was instructed to come to the emergency room by primary care provider when he noticed the wound today. In our emergency department, the patient was investigated with a normal white cell count. An x-ray of the foot/echo showed no obvious signs of osteomyelitis. Because of the above presentation and clinical aspect, the patient was referred to the Hospitalist Service for further management and evaluation. PAST MEDICAL HISTORY: As above, significant for diabetes type 2, insulin dependent, poorly controlled; significant for hyperlipidemia/dyslipidemia; significant for hypothyroidism; significant for hypertension; significant for obstructive sleep apnea, not compliant with CPAP machine; significant for ongoing tobacco abuse despite strong advice to quit doing so; significant for asthma/COPD; significant for several diabetic wounds on both feet with ulcerations and osteomyelitis of the right great toe with amputation in October 2016; significant for GERD; significant for morbid obesity. PAST SURGICAL HISTORY: Significant for amputation of the right great toe in October 2016 and tonsillectomy, significant for other intervention with debridement and I and D at the site of the previous right foot wound last in December 2016. ALLERGIES: TO ASPARTAME AND COCONUT. HOME MEDICATIONS: According the list provided, the patient is supposed to take multivitamin one tablet p.o. daily, combination of ibuprofen and Pepcid 800/26.6 mg one tablet p.o. t.i.d., Lasix 20 mg p.o. daily, Januvia 100 mg p.o. daily, lisinopril 20 mg p.o. b.i.d., metformin XR 1000 mg p.o. b.i.d., vitamin D 50,000 units weekly on , niacin 1000 mg p.o. daily, Singulair 10 mg p.o. q.h.s., potassium (KCl) 20 mEq p.o. daily, Zantac 150 mg p.o. b.i.d., Synthroid 150 mcg p.o. daily, Toujeo 30 units subcu q.h.s., Bydureon 2 mg subcu once a week on Wednesdays, glucosamine chondroitin one tablet p.o. b.i.d., Robaxin 500 mg p.o. q.6 hours p.r.n. muscle spasm, and aspirin 81 mg p.o. daily. History And Physical [address] [address] NAME: REGGIE CAMACHO : 72 STATUS : ADM IN [facility]#: [id number] AGE: 46 ADM/REG DATE : 02/15/17 MR#: [id number] REPORT SERV DATE: 02/15/17 DICTATED BY: HUNG FARAH DATE: 02/15/17 REPORT STATUS : Draft TRANSCRIBED BY: MODL DATE: 02/15/17 FAMILY HISTORY: Significant for diabetes and hypertension. SOCIAL HISTORY: lives with his . He smokes about one pack of cigarettes daily. Denies alcohol abuse. Denies illicit or recreational drug abuse. 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 REVIEW OF SYSTEMS: As per H and P, otherwise negative in all review of systems. Please note that the comprehensive review of system was obtained and pertinent positives were including in the H and P. PHYSICAL EXAMINATION: GENERAL: Pleasant, cooperant, and in no particular acute distress. VITAL SIGNS: Upon arrival in the emergency room, blood pressure 172/81, pulse 109, respiratory rate 18, temperature 98.7, oxygen saturation 97% on room air. HEENT: Pupils equal, round, and reactive to light. Extraocular movements intact. Throat, mild erythema. No exudate. NECK: Supple. No JVD. No bruits. No thyromegaly. No lymph nodes. LUNGS: Bilateral air entry. Distant breath sounds with few dry crackles at bases. No wheezing. Good airway movement. HEART: Positive S1, S2. Regular rate and rhythm. Positive soft mitral regurgitation and murmur at the apex. The PMI is not displaced by palpation. ABDOMEN: Positive bowel sounds. Soft, morbidly obese, nontender. No guarding. No hepatosplenomegaly. EXTREMITIES: Full range of motion. +2 pulses. No clubbing, no cyanosis, no edema. Left foot showed signs of cellulitis changes, especially proximal onto the first great toe which has significant ulceration to the plantar of the first and second phalanx. Noticeable cellulitic changes extended onto the leg/calf. Right foot status post first toe amputation with healing surgical scar. Several blisters and redness noticed on the dorsal aspect of the right foot. No localized abscess or ulcerations noticed at this time. NEUROLOGIC: Alert and oriented x3. Grossly nonfocal. Cranial nerves II through XII are grossly intact. Motor strength 5/5 symmetrical bilateral. Deep tendon reflexes 2/2 symmetrical bilateral. BACK: With decreased range of motion, but no focal localized tenderness. No CVA tenderness. SKIN: No bruises, no rashes, no lacerations (besides the above-mentioned changes of bilateral lower extremities). SIGNIFICANT LABORATORY DATA: X-ray of the left foot/great toes by preliminary report from emergency room showed ulcerations soft tissue swelling of the leg and great toe. No definite evidence of osteomyelitis. Sodium 139, potassium 4.2, chloride 104, bicarb 26, BUN 13, creatinine 0.74, glucose 261, calcium 8.5, albumin 3.1, AKP 123 which is slightly elevated. Other liver function tests within normal limits. White cell count 9.3, hemoglobin 13.9, platelet count 175. ASSESSMENT AND PLAN AND PROBLEM LIST: The patient is a pleasant 46-year-old man admitted with ulceration and diabetic foot ulceration wound and possible osteomyelitis and cellulitis of the left great toe. History And Physical [address] [address] NAME: REGGIE CAMACHO : 72 STATUS : ADM IN PAT#: [id number] AGE: 46 ADM/REG DATE : 02/15/17 MR#: [id number] REPORT SERV DATE: 02/15/17 DICTATED BY: HUNG FARAH DATE: 02/15/17 REPORT STATUS : Draft TRANSCRIBED BY: DANIEL DATE: 02/15/17 Impression: 1. Left great toe diabetic foot ulceration. a. Possible osteomyelitis. b. Cellulitis of left foot and left leg. All the above, we are going to provide great antibiotic coverage (the patient had previously gram-negative robert infection on the right side as well as previously Staph and different Streps infection). We are going to obtain an MRI of the foot to evaluate for possible osteomyelitis and obtain Orthopedic consultation for possible I and D of the wound. 2. Endocrinologic problem. a. Diabetes type 2, uncontrolled, insulin dependent with complications. b. Hyperlipidemia, mixed type. c. Hypothyroidism, acquired. d. Morbid obesity with a body mass index over 40. For all the above, we are going to continue long-acting insulin as Levemir 20 units subcu b.i.d., continue sliding scale and diabetic education. Continue the patient's low cholesterol diet and continue Synthroid and encourage weight loss and moderate structured exercise. 3. Essential hypertension. Continue lisinopril and use IV hydralazine p.r.n. for increased blood pressure. 4. Pulmonary with:. a. Tobacco dependency disorder, severe. The patient was again advised to quit smoking and provided with smoking cessation education and offered nicotine replacement therapy as a nicotine patch 21 mg daily. b. Asthma/chronic obstructive pulmonary disease. Provide bronchodilator therapy p.r.n. shortness of breath. Continue Singulair. c. Obstructive sleep apnea by history. Apparently, no CPAP. We will offer support and reinforce compliance. d. Status post recent right great toe amputation with subsequent I and D of the wound on the right foot. PROGNOSIS: Moderate for this admission. Discussed with the patient and questions were answered in full. Please note, also the written H and P, and written orders and instructions. Please note, the patient is a full code at this moment as discussed with the patient at bedside. RF/MODKian Hung Farah M.D. / [id number] CC: Kavon Gil MD
[2017-02-15 15:37] LABS: BASOPHILS 0.4 %; BASOPHILS ABSOLUTE 0.04 10/3/uL (0.0-0.16); EOSINOPHILS 2.6 %; EOSINOPHILS ABSOLUTE 0.24 10/3/uL (0.0-0.53); HEMATOCRIT 42.6 % (40.0-51.0); HEMOGLOBIN 13.9 g/dL (13.6-17.8); IMMATURE GRANULOCYTES 0.2 %; IMMATURE GRANULOCYTES ABSOLUTE 0.02 10/3/uL (0.0-0.11); LYMPHOCYTES 20.1 %; LYMPHOCYTES ABSOLUTE 1.87 10/3/uL (0.67-4.30); MEAN CORPUS HGB CONC 32.6 g/dL (32.0-36.0); MEAN CORPUSCULAR HEMOGLOB 28.1 pg (26.0-34.0); MEAN CORPUSCULAR VOLUME 86.1 fL (80-100); MONOCYTES 7.2 %; MONOCYTES ABSOLUTE 0.67 10/3/uL (0.21-1.20); NEUTROPHILS 69.5 %; NEUTROPHILS ABSOLUTE 6.46 10/3/uL (2.02-8.40); PLATELET COUNT 175 10/3/uL (150-400); RBC DISTRIBUTION WIDTH 14.6 % (12.0-16.0); RED CELL COUNT 4.95 10/6/uL (4.7-6.1)
[2017-02-15 15:51] LABS: A/G RATIO 0.7 (0.7-1.9); ALBUMIN 3.1 G/DL (3.5-5.0); BUN (BLOOD UREA NITROGEN) 13 MG/DL (6-23); CALCIUM, SERUM 8.5 MG/DL (8.5-10.4); CHLORIDE, SERUM 104 MMOL/L (96-112); CO2 (CARBON DIOXIDE) 26 MMOL/L (24-34); CREATININE 0.74 MG/DL (0.70-1.30); GFR AFRICAN AMERICAN 129 ML/MIN (>=60); GFR NON AFRICAN AMERICAN 111 ML/MIN (>=60); GLOBULIN 4.2 G/DL (2.5-4.1); SGPT(ALT) 33 U/L (5-65); SODIUM, SERUM 139 MMOL/L (135-148); TOTAL BILIRUBIN 0.4 MG/DL (0-1.2); TOTAL PROTEIN 7.3 G/DL (6.0-8.5)
[2017-02-15 15:52] LABS: ER CBC TAT 0 Hrs 25 Mins; WHITE BLOOD CELLS 9.3 10/3/uL (4.5-10.5)
[2017-02-15 15:53] LABS: MANUAL DIFF NO %
[2017-02-15 15:59] LABS: ALKALINE PHOSPHATASE 123 U/L (45-117); GLUCOSE, SERUM 261 MG/DL (60-99); POTASSIUM, SERUM 4.2 MMOL/L (3.5-5.3); SGOT(AST) 33 U/L (5-40)
[~2017-02-15 16:21] MED LIST changes: +JANUVIA100 MG PO
[2017-02-15] MEDS ORDERED: DUEXIS 800-26.1 EACH PO (17:31)
[2017-02-15] MEDS ORDERED: PRIN20 PO (17:31)
[2017-02-15] MEDS ORDERED: GLUCOPHXR PO (17:31)
[2017-02-15] MEDS ORDERED: MULTIVITAMI1 PO (17:31)
[2017-02-15] MEDS ORDERED: L20 PO (17:31)
[2017-02-15] MEDS ORDERED: JANUVIA100 MG PO (17:31)
[2017-02-15] MEDS ORDERED: SINGULAIR1 PO (17:32)
[2017-02-15] MEDS ORDERED: NIACOR500 MG PO (17:32)
[2017-02-15] MEDS ORDERED: ZANTAC150 MG PO (17:32)
[2017-02-15] MEDS ORDERED: VITD PO (17:32)
[2017-02-15] MEDS ORDERED: KLOR-CON M2020 MEQ PO (17:32)
[2017-02-15] MEDS ORDERED: BYDUREON2 MG SC (17:33)
[2017-02-15] MEDS ORDERED: TOUJEO SC (17:33)
[2017-02-15] MEDS ORDERED: SYN.15 PO (17:33)
[2017-02-15] MEDS ORDERED: GLUCOSAMINEPO PO (17:33)
[2017-02-15] MEDS ORDERED: METHOC500B PO (17:34)
[2017-02-15] MEDS ORDERED: ASAB PO (17:34)
[2017-02-15 23:01] LABS: ULTRASENSITIVE TSH 3.44 MCIU/ML (0.358-3.740)
[2017-02-15 23:15] LABS: C-REACTIVE PROTEIN 44.8 MG/L (<8.0)
[2017-02-15 23:30] LABS: PROCALCITONIN 0.12 ng/mL (<0.5)
[2017-02-16 07:01] LABS: PARTIAL THROMBO TIME 29.6 SEC (22.5-37.2)
[2017-02-16 07:02] LABS: INTERNATIONAL NORMAL RATI 1.1 UNITS (-); PROTIME (NOT ORD) 13.8 SEC (12.0-14.5)
[2017-02-16 07:09] LABS: ALBUMIN 2.8 G/DL (3.5-5.0); BUN (BLOOD UREA NITROGEN) 11 MG/DL (6-23); CALCIUM, SERUM 8.5 MG/DL (8.5-10.4); CHLORIDE, SERUM 104 MMOL/L (96-112); CO2 (CARBON DIOXIDE) 27 MMOL/L (24-34); CREATININE 0.71 MG/DL (0.70-1.30); GFR AFRICAN AMERICAN 131 ML/MIN (>=60); GFR NON AFRICAN AMERICAN 113 ML/MIN (>=60); GLUCOSE, SERUM 225 MG/DL (60-99); PHOSPHORUS, SERUM 3.2 MG/DL (2.5-4.5); POTASSIUM, SERUM 4.3 MMOL/L (3.5-5.3); SODIUM, SERUM 137 MMOL/L (135-148)
[2017-02-16 10:35] LABS: SED RATE 53 MM/HR (0-15)
[2017-02-16 11:49] LABS: BASOPHILS 0.4 %; BASOPHILS ABSOLUTE 0.03 10/3/uL (0.0-0.16); EOSINOPHILS 2.9 %; EOSINOPHILS ABSOLUTE 0.22 10/3/uL (0.0-0.53); HEMATOCRIT 38.7 % (40.0-51.0); HEMOGLOBIN 12.5 g/dL (13.6-17.8); IMMATURE GRANULOCYTES 0.3 %; IMMATURE GRANULOCYTES ABSOLUTE 0.02 10/3/uL (0.0-0.11); LYMPHOCYTES ABSOLUTE 1.83 10/3/uL (0.67-4.30); MEAN CORPUS HGB CONC 32.3 g/dL (32.0-36.0); MEAN CORPUSCULAR HEMOGLOB 27.9 pg (26.0-34.0); MEAN CORPUSCULAR VOLUME 86.4 fL (80-100); MEAN PLATELET VOLUME 11.8 fL (9.2-13.0); MONOCYTES 10.1 %; MONOCYTES ABSOLUTE 0.77 10/3/uL (0.21-1.20); NEUTROPHILS 62.3 %; NEUTROPHILS ABSOLUTE 4.75 10/3/uL (2.02-8.40); PLATELET COUNT 149 10/3/uL (150-400); RBC DISTRIBUTION WIDTH 14.7 % (12.0-16.0); RED CELL COUNT 4.48 10/6/uL (4.7-6.1); WHITE BLOOD CELLS 7.6 10/3/uL (4.5-10.5)
[2017-02-16 11:50] LABS: MANUAL DIFF NO %
[2017-02-17 06:09] LABS: BASOPHILS 0.5 %; BASOPHILS ABSOLUTE 0.03 10/3/uL (0.0-0.16); EOSINOPHILS 3.9 %; EOSINOPHILS ABSOLUTE 0.25 10/3/uL (0.0-0.53); HEMATOCRIT 40.8 % (40.0-51.0); HEMOGLOBIN 13.2 g/dL (13.6-17.8); IMMATURE GRANULOCYTES 0.2 %; IMMATURE GRANULOCYTES ABSOLUTE 0.01 10/3/uL (0.0-0.11); LYMPHOCYTES 24.8 %; MANUAL DIFF NO %; MEAN CORPUS HGB CONC 32.4 g/dL (32.0-36.0); MEAN CORPUSCULAR HEMOGLOB 27.6 pg (26.0-34.0); MEAN CORPUSCULAR VOLUME 85.2 fL (80-100); MEAN PLATELET VOLUME 11.3 fL (9.2-13.0); MONOCYTES 6.8 %; MONOCYTES ABSOLUTE 0.44 10/3/uL (0.21-1.20); NEUTROPHILS 63.8 %; NEUTROPHILS ABSOLUTE 4.12 10/3/uL (2.02-8.40); PLATELET COUNT 142 10/3/uL (150-400); RBC DISTRIBUTION WIDTH 14.2 % (12.0-16.0); RED CELL COUNT 4.79 10/6/uL (4.7-6.1); WHITE BLOOD CELLS 6.5 10/3/uL (4.5-10.5)
[2017-02-17 06:30] LABS: A/G RATIO 0.7 (0.7-1.9); ALBUMIN 2.9 G/DL (3.5-5.0); ALKALINE PHOSPHATASE 99 U/L (45-117); BUN (BLOOD UREA NITROGEN) 11 MG/DL (6-23); CALCIUM, SERUM 8.3 MG/DL (8.5-10.4); CHLORIDE, SERUM 103 MMOL/L (96-112); CO2 (CARBON DIOXIDE) 30 MMOL/L (24-34); CREATININE 0.67 MG/DL (0.70-1.30); GFR AFRICAN AMERICAN 134 ML/MIN (>=60); GFR NON AFRICAN AMERICAN 116 ML/MIN (>=60); GLOBULIN 3.9 G/DL (2.5-4.1); GLUCOSE, SERUM 189 MG/DL (60-99); POTASSIUM, SERUM 4.1 MMOL/L (3.5-5.3); SGOT(AST) 34 U/L (5-40); SGPT(ALT) 33 U/L (5-65); SODIUM, SERUM 137 MMOL/L (135-148); TOTAL PROTEIN 6.8 G/DL (6.0-8.5)
[2017-02-18 05:39] LABS: BASOPHILS 0.4 %; BASOPHILS ABSOLUTE 0.03 10/3/uL (0.0-0.16); EOSINOPHILS 4.2 %; EOSINOPHILS ABSOLUTE 0.28 10/3/uL (0.0-0.53); HEMATOCRIT 41.2 % (40.0-51.0); HEMOGLOBIN 13.8 g/dL (13.6-17.8); IMMATURE GRANULOCYTES 0.1 %; IMMATURE GRANULOCYTES ABSOLUTE 0.01 10/3/uL (0.0-0.11); LYMPHOCYTES 24.8 %; LYMPHOCYTES ABSOLUTE 1.67 10/3/uL (0.67-4.30); MEAN CORPUS HGB CONC 33.5 g/dL (32.0-36.0); MEAN CORPUSCULAR HEMOGLOB 28.4 pg (26.0-34.0); MEAN CORPUSCULAR VOLUME 84.8 fL (80-100); MEAN PLATELET VOLUME 11.3 fL (9.2-13.0); MONOCYTES 8.9 %; NEUTROPHILS 61.6 %; NEUTROPHILS ABSOLUTE 4.15 10/3/uL (2.02-8.40); RBC DISTRIBUTION WIDTH 14.2 % (12.0-16.0); RED CELL COUNT 4.86 10/6/uL (4.7-6.1); WHITE BLOOD CELLS 6.7 10/3/uL (4.5-10.5)
[2017-02-18 05:40] LABS: MANUAL DIFF NO %; PLATELET COUNT 193 10/3/uL (150-400)
[2017-02-18 05:51] LABS: A/G RATIO 0.6 (0.7-1.9); ALBUMIN 2.9 G/DL (3.5-5.0); ALKALINE PHOSPHATASE 104 U/L (45-117); BUN (BLOOD UREA NITROGEN) 12 MG/DL (6-23); CALCIUM, SERUM 8.9 MG/DL (8.5-10.4); CHLORIDE, SERUM 101 MMOL/L (96-112); CO2 (CARBON DIOXIDE) 26 MMOL/L (24-34); CREATININE 0.72 MG/DL (0.70-1.30); GFR AFRICAN AMERICAN 131 ML/MIN (>=60); GFR NON AFRICAN AMERICAN 113 ML/MIN (>=60); GLOBULIN 4.5 G/DL (2.5-4.1); GLUCOSE, SERUM 204 MG/DL (60-99); SGPT(ALT) 50 U/L (5-65); SODIUM, SERUM 135 MMOL/L (135-148); TOTAL BILIRUBIN 0.6 MG/DL (0-1.2); TOTAL PROTEIN 7.4 G/DL (6.0-8.5)
[2017-02-18 05:52] LABS: POTASSIUM, SERUM 4.2 MMOL/L (3.5-5.3)
[2017-02-18 05:53] LABS: SGOT(AST) 82 U/L (5-40)
[2017-02-19 05:43] LABS: HEMOGLOBIN 14.3 g/dL (13.6-17.8); MANUAL DIFF YES %; MEAN CORPUS HGB CONC 33.3 g/dL (32.0-36.0); MEAN CORPUSCULAR HEMOGLOB 28.3 pg (26.0-34.0); MEAN PLATELET VOLUME 11.4 fL (9.2-13.0); PLATELET COUNT 274 10/3/uL (150-400); RBC DISTRIBUTION WIDTH 14.3 % (12.0-16.0); RED CELL COUNT 5.06 10/6/uL (4.7-6.1)
[2017-02-19 05:55] LABS: A/G RATIO 0.7 (0.7-1.9); ALBUMIN 3.2 G/DL (3.5-5.0); ALKALINE PHOSPHATASE 111 U/L (45-117); BUN (BLOOD UREA NITROGEN) 14 MG/DL (6-23); CALCIUM, SERUM 9.4 MG/DL (8.5-10.4); CHLORIDE, SERUM 99 MMOL/L (96-112); CO2 (CARBON DIOXIDE) 26 MMOL/L (24-34); CREATININE 0.79 MG/DL (0.70-1.30); GFR AFRICAN AMERICAN 126 ML/MIN (>=60); GFR NON AFRICAN AMERICAN 108 ML/MIN (>=60); GLOBULIN 4.6 G/DL (2.5-4.1); GLUCOSE, SERUM 214 MG/DL (60-99); POTASSIUM, SERUM 4.3 MMOL/L (3.5-5.3); SGOT(AST) 66 U/L (5-40); SGPT(ALT) 54 U/L (5-65); SODIUM, SERUM 136 MMOL/L (135-148); TOTAL BILIRUBIN 0.5 MG/DL (0-1.2); TOTAL PROTEIN 7.8 G/DL (6.0-8.5)
[2017-02-19 06:27] LABS: BAND NEUTROPHILS 5 %; LYMPHOCYTES 15 %; LYMPHOCYTES ABSOLUTE (CALC) 1.35 10/3/uL (0.67-4.30); MONOCYTES 4 %; MONOCYTES ABSOLUTE (CALC) 0.36 10/3/uL (0.21-1.20); NEUTROPHILS ABSOLUTE (CALC) 7.29 10/3/uL (2.02-8.40); PLATELET ESTIMATE ADQ (ADEQUATE); SEGMENTED NEUTROPHIL (0) 76 %; TOTAL NUCLEATED CELLS 100
[2017-02-19 06:28] LABS: RBC MORPHOLOGY NORM (NORMAL)
[2017-02-20 10:09] LABS: BUN (BLOOD UREA NITROGEN) 16 MG/DL (6-23); CALCIUM, SERUM 8.7 MG/DL (8.5-10.4); CHLORIDE, SERUM 101 MMOL/L (96-112); CO2 (CARBON DIOXIDE) 28 MMOL/L (24-34); CREATININE 0.73 MG/DL (0.70-1.30); GFR AFRICAN AMERICAN 130 ML/MIN (>=60); GFR NON AFRICAN AMERICAN 112 ML/MIN (>=60); GLUCOSE, SERUM 172 MG/DL (60-99); POTASSIUM, SERUM 4.1 MMOL/L (3.5-5.3); SODIUM, SERUM 139 MMOL/L (135-148); VANCOMYCIN TROUGH 26.3 MCG/ML (10.0-20.0)
[2017-02-20] MEDS ORDERED: ZYVOXPO PO (14:21)
[2017-02-20] MEDS ORDERED: TEFLARO600 MG IV (14:23)
== END 2017-02-21 18:33 | disposition home or self-care (01) | DRG 41 ==
LOC: ER 16:21 → 4SO 18:30
PROVIDERS: Emergency Medicine; Hospitalist; Internal Medicine; Student in an Organized Health Care Education/Training Program
DX: E11.42 Type 2 diabetes mellitus with diabetic polyneuropathy (principal); L03.116 Cellulitis of left lower limb; E11.621 Type 2 diabetes mellitus with foot ulcer; Z68.41 Body mass index [BMI] 40.0-44.9, adult; E11.65 Type 2 diabetes mellitus with hyperglycemia; E66.01 Morbid (severe) obesity due to excess calories; I10 Essential (primary) hypertension; E11.628 Type 2 diabetes mellitus with other skin complications; L03.032 Cellulitis of left toe; E78.5 Hyperlipidemia, unspecified; E03.9 Hypothyroidism, unspecified; J44.9 Chronic obstructive pulmonary disease, unspecified; G47.33 Obstructive sleep apnea (adult) (pediatric); F17.210 Nicotine dependence, cigarettes, uncomplicated; Z79.82 Long term (current) use of aspirin; Z79.84 Long term (current) use of oral hypoglycemic drugs; Z79.899 Other long term (current) drug therapy; Z91.19 Patient's noncompliance with other medical treatment and regimen; Z89.411 Acquired absence of right great toe; Z88.8 Allergy status to other drugs, medicaments and biological substances; Z91.018 Allergy to other foods; B95.62 Methicillin resistant Staphylococcus aureus infection as the cause of diseases classified elsewhere
CPT/HCPCS: 36569; 71010; 73630-LT; 73720-LT; 80048; 80053; 80069; 80202; 82962; 83036; 83735; 84100; 84145; 84443; 85025; 85610; 85652; 85730; 86140; 87040; 87070; 87075; 87077; 87186; 87205; 93005; 96374; 96375; 96376; 97162-GP; 99285; A9270-GY; A9577; C1751; J0690; J0712; J2543; J2930; J3370